=== PATIENT | female | born 1955 | race Caucasian/White ===

== ENCOUNTER → 2021-07-30 | Outpatient (CLI) | payer MEDICARE, OTHER | LOC: LAB SHORT 10:55 | PROVIDERS: Internal Medicine Endocrinology, Diabetes & Metabolism | DX: I10 Essential (primary) hypertension (principal) | CPT/HCPCS: 81050 ==

== ENCOUNTER 2021-09-11 08:40 | Day surgery (SDC) | payer MEDICARE ==
[~2021-09-11] VITALS: Ht 152.4 cm; Wt 86.7 kg
[~2021-09-11 08:40] MED LIST: ALBU90OI INH; AMLO10 PO; DIAZ2 PO; DULO30 PO; EPIPEN0.3 MG/0.3 IM; EUTHYROX125 MCG PO; HYDROCHLOROTH12.5 MG; LOSARTAN POTAS100 M1 PO; METO50 PO; MOBIC15 MG PO; OMEP20ER PO; TERCONAZOLE45 GM VG; TRITOCIN430 GM
--- NOTE | 2021-09-11 09:21 | NUR ---
09/11/21 0921 Emile Rothman CALL LIGHT WITHIN REACH
== END 2021-09-11 10:57 | disposition home or self-care (01) ==
LOC: ORSCSDS 08:40
PROVIDERS: Surgery
PROC: 0DJD8ZZ Inspection of Lower Intestinal Tract, Via Natural or Artificial Opening Endoscopic (ICD-10-PCS; principal; 2021-09-11 10:00)
DX: R10.84 Generalized abdominal pain (principal); Z86.010 Personal history of colon polyps; Z85.9 Personal history of malignant neoplasm, unspecified; K21.9 Gastro-esophageal reflux disease without esophagitis; I10 Essential (primary) hypertension; G47.33 Obstructive sleep apnea (adult) (pediatric); F41.9 Anxiety disorder, unspecified; F32.A Depression, unspecified; E03.9 Hypothyroidism, unspecified; E78.5 Hyperlipidemia, unspecified; Z79.899 Other long term (current) drug therapy; E66.01 Morbid (severe) obesity due to excess calories; Z68.36 Body mass index [BMI] 36.0-36.9, adult
CPT/HCPCS: J2704; J7120

== ENCOUNTER 2021-11-11 09:14 | Emergency (ER) | payer MEDICARE ==
[~2021-11-11] VITALS: Ht 157.5 cm; Wt 70.3 kg
[2021-11-11 10:12] LABS: BASOPHILS ABSOLUTE AUTO 0.05 K/mm3 (0.00-0.23); BASOPHILS PERCENT AUTO 1 % (0-2); EOSINOPHILS ABSOLUTE AUTO 0.25 K/mm3 (0.00-0.68); EOSINOPHILS PERCENT AUTO 3 % (0-6); Hematocrit 39.9 % (33.0-51.0); Hemoglobin 12.6 g/dL (11.5-16.0); IMMATURE GRAN ABSOLUTE AUTO 0.05 K/mm3 (0.00-0.10); IMMATURE GRAN PERCENT AUTO 1 % (0-1); LYMPHOCYTES ABSOLUTE AUTO 2.81 K/mm3 (0.84-5.20); LYMPHOCYTES PERCENT AUTO 29 % (21-46); MONOCYTES ABSOLUTE AUTO 0.78 K/mm3 (0.16-1.47); MONOCYTES PERCENT AUTO 8 % (4-13); Mean Corpuscular HGB 26.4 pg (26.0-34.0); Mean Corpuscular HGB Conc 31.6 g/dL (31.5-36.5); Mean Corpuscular Volume 84 fL (80-100); Mean Platelet Volume 8.9 fL (9.1-12.4); NEUTROPHILS ABSOLUTE AUTO 5.67 K/mm3 (1.96-9.15); NEUTROPHILS PERCENT AUTO 59 % (41-73); Platelet Count 331 K/mm3 (150-400); RDW Coefficient Variation 15.5 % (11.7-14.2); Red Blood Cell Count 4.78 M/mm3 (3.80-5.20); White Blood Cell Count 9.61 K/mm3 (4.00-11.30)
[2021-11-11 10:37] LABS: Albumin, Blood 3.7 g/dL (3.4-5.0); Albumin/Globulin Ratio 0.9 (0.8-1.8); Bilirubin, Total 0.4 mg/dL (0.1-1.0); Calcium, Blood 10.2 mg/dL (8.5-10.1); Creatinine, Blood 0.5 mg/dL (0.40-1.00); Globulin, Blood 4.3 g/dL (2.2-4.0); Potassium, Blood 4.5 mmol/L (3.5-5.5)
[2021-11-11 11:07] LABS: Source, Urine Clean Catch
[2021-11-11 11:19] LABS: Bilirubin, Urine Neg (Neg); Blood, Urine 1+ (Neg); Glucose Qualitative, Urine Neg (Neg); Ketones, Urine Neg (Neg); Leukocyte Esterase, Urine Neg (Neg); Nitrite, Urine Neg (Neg); Protein, Urine Neg (Neg); Specific Gravity, Urine 1.005 (1.003-1.022); Urobilinogen, Urine NORM (Normal)
[2021-11-11 11:49] LABS: Appearance, Urine Clear (Clear); Color, Urine Pale Yellow (P-Yellow)
[2021-11-11 11:51] LABS: Bacteria Rare /hpf; Red Blood Cells, Urine 0-2 /hpf (0-2); Squamous Epithelial Cells Rare /hpf (Few); White Blood Cells, Urine 0-2 /hpf (0-5)
[2021-11-11] MEDS ORDERED: METFORMIN HCL500 M3 PO (12:22)
[2021-11-11] MEDS ORDERED: HYDR1TAB94 PO (12:46)
== END 2021-11-11 13:09 | disposition home or self-care (01) ==
LOC: ER 09:14
PROVIDERS: Physician Assistant
DX: R10.2 Pelvic and perineal pain (principal); G89.29 Other chronic pain; N93.9 Abnormal uterine and vaginal bleeding, unspecified; I10 Essential (primary) hypertension; E03.9 Hypothyroidism, unspecified; Z79.899 Other long term (current) drug therapy; Z79.84 Long term (current) use of oral hypoglycemic drugs
CPT/HCPCS: 36415; 74177; 80053; 81001; 83690; 85025; J1885; J2405; J3010; J7030; Q9967